=== PATIENT | male | born 1950 ===

== ENCOUNTER → 2025-02-23 | Outpatient (CLI) | payer OTHER ==
[2025-02-27 07:09] LABS: VARICELLA-ZOSTER VIRUS BY PCR Detected; VARICELLA-ZOSTER VIRUS SOURCE RIGHT EYEBROW
== END ==
LOC: LAB SHORT 09:47 → LAB 09:47
PROVIDERS: Physician Assistant Medical
DX: B02.9 Zoster without complications (principal)
CPT/HCPCS: 87798